=== PATIENT | male | born 1995 | race Caucasian/White ===

== ENCOUNTER → 2018-01-18 08:15 | Outpatient (CLI) | payer SELFPAY ==
[2018-01-18 08:33] LABS: Absolute Lymphocyte Count 1.23 X10^3/ul (0.83-4.51); Absolute Neutrophil Count 2.9 X10^3/uL (2.0-7.7); Basophil# 0.03 X10^3/uL; Basophil% 0.6 % (0-1); Eosinophil# 0.17 X10^3/uL; Eosinophils% 3.5 % (0-5); Hematocrit 46.2 % (40-54); Hemoglobin 16.3 g/dl (13.0-16.5); Lymphocyte # 1.23 X10^3/ul (4.0); Lymphocyte % 25.7 % (19-41); Mean Corp Hgb Conc 35.3 g/gl (32-36); Mean Corpuscular Volume 84.9 fL (80-94); Mean Platelet Vol. 9.3 fl (6.2-12.0); Monocyte# 0.45 X10^3/uL; Monocyte% 9.4 % (0-10); Neutrophil % 60.6 % (47-70); POSITIVE COUNT NO; POSITIVE DIFFERENTIAL NO; POSITIVE MORPHOLOGY NO; Platelet Count 241 K/mm3 (150-450); RBC Distribution Width CV 12.8 % (11.6-14.6); RBC Distribution Width SD 39.6 fl (35.1-43.9); Red Blood Count 5.44 M/mm3 (4.6-6.2); White Blood Count 4.8 K/mm3 (4.4-11.0)
[2018-01-18 09:10] LABS: Anion Gap 7 (5-15); BUN 19 mg/dL (7-18); BUN/Creat Ratio 19.4 RATIO (10-20); Calcium,Total 9.2 mg/dL (8.5-10.1); Chloride 106 mmol/L (98-107); Creatinine, Serum 0.98 mg/dL (0.70-1.30); EST Glomerular Filtration Rate 104 mL/min (>60); Est Glom Filt Rate - Afr Amer 126 mL/min (>60); Glucose 92 mg/dL (74-106); Potassium 3.9 mmol/L (3.5-5.1); Sodium Level 142 mmol/L (136-145)
--- NOTE | 2018-01-18 13:13 | PCM.TILTTABL ---
- Summary Pre Test Resting HR: 75 Pre Test Resting BP: 130/63 Minimum Test HR: 57 Maximum Test HR: 139 Minimum Test BP: 0/0 Maximum Test BP: 145/77 Reason for Test Termination: Syncope Physician Tilt Table Report - Patient's Physicians Primary Care Physician: Terrell Ann Indications/Diagnosis: Recurrent syncope Procedure Comments: The patient was brought to the noninvasive lab in the postabsorptive state. The patient underwent head up tilt table testing for 20 minutes. The initial blood pressure was 130/63 mmHg with a pulse rate of 75 bpm. After 20 minutes the pulse rate was noted to be 78 bpm and a blood pressure 132/75 mmHg. No significant symptomatology was noted other than mild lightheadedness, shortness of breath and tunnel vision. The patient was then brought back in the recumbent position and administered sublingual nitroglycerin. The patient was then put up in the 70 degree had up tilt position. After approximately 4 minutes the heart rate went from 108-122 and then subsequently to 57 bpm with a drop in the blood pressure to palpable only. Patient was noted to be diaphoretic and passed out. Summary: Positive head upright tilt table test with evidence of vasodepressor syncope. Patient recovered well post test.
[2018-01-18 13:17] VITALS: BP 0/0; BP 130/63; BP 145/77
== END ==
PROVIDERS: Family Provider Nurse Practitioner Family; PCP Nurse Practitioner Family; Referring Provider Internal Medicine Cardiovascular Disease; Visit Provider Internal Medicine Cardiovascular Disease
DX: R55 Syncope and collapse (principal); B08.3 Erythema infectiosum [fifth disease]; R42 Dizziness and giddiness
CPT/HCPCS: 36415; 80048; 85025; 93660; J7040; A4216

== ENCOUNTER 2018-09-19 13:09 | Emergency (ER) | payer SELFPAY ==
[2018-09-19 13:10] VITALS: BP 138/74; PULSE 75; RESP 16; TEMP 36.4; O2SAT 97; BMI 27.3
--- NOTE | 2018-09-19 13:30 | CT_ITS ---
STUDY: CT ABDOMEN AND PELVIS WITHOUT CONTRAST REASON FOR EXAM: Male, 22 years old. Right flank pain and right lower quadrant pain. RADIATION DOSAGE (If Supplied By Facility): CTDIvol = ( 8.99 ) mGy, DLP = ( 409.30 ) mGycm TECHNIQUE: Transaxial images were obtained from the dome of the diaphragm to the symphysis pubis without oral contrast, and without intravenous contrast. Sagittal and coronal images were reconstructed. Individualized dose optimization techniques were used for this CT. COMPARISON: None. FINDINGS: The visualized lung bases are unremarkable. The visualized portions of the heart are within normal limits. Normal liver. Normal gallbladder and extrahepatic biliary system. Normal spleen. Normal pancreas. Normal bilateral adrenal glands. Normal right kidney. Normal left kidney. Normal visualized stomach. Normal small intestine. Normal colon. There is a calcified appendicolith. No radiographic evidence of acute appendicitis. Normal abdominal aorta. Normal inferior vena cava. Normal retroperitoneum. Normal urinary bladder. Normal abdominal wall. Schmorl's nodes seen at the T11, T12, L1, L2 and L3 vertebrae. CT/Abdomen/Pelvis without Cont IMPRESSION: Calcified appendicolith without evidence of appendicitis at this time. Electronically Signed: Frank Montenegro, at 14:33 EDT , Service support ,
--- NOTE | 2018-09-19 13:31 | ED.VIS.GEN ---
History of Present Illness Chief Complaint: Flank Pain Informant: Patient Onset: Today Context: Sudden Onset Timing: Waxes and wanes Current Severity: Moderate Maximum Severity: Moderate Narrative: Patient presents with nontraumatic right flank pain radiating to right abdominal region and intermittent radiation to his right testicle. No nausea or vomiting. He does have a physical job but he was not doing anything out of the ordinary when this started. He denies upper abdominal pain. He has no dysuria. Past Medical History - Allergies and Home Meds Allergies/Adverse Reactions: Allergies No Known Allergies Allergy (Verified 03/17/17 15:16) Primary Care Physician: Terrell Ann NP-C [Primary Care Provider] - Prior records reviewed: Yes Past Medical History: None Surgical History: noncontributory Lives: Spouse/ Significant Other Smoking Status: Never smoker - Family History Maternal Family History: Family History (Last Reviewed 12/24/17 @ 16:29 by Harmeet Horne MD) Father Hyperlipidemia Family History: Reports: No pertinent history Review of Systems All systems negative except as indicated General: Denies: Fever Cardiovascular: Denies: Chest pain, Palpitations Respiratory: Denies: Cough Gastrointestinal: Reports: Abdominal pain. Denies: Nausea, Vomiting Genitourinary: Denies: Dysuria, Hematuria Musculoskeletal: Reports: Back pain Skin: Denies: Rash Neurological: Denies: Weakness Psych: Denies: Depression Endocrine: Denies: Polyuria Physical Exam Vital Signs/Narrative: Vital Signs Temp Pulse Resp BP Pulse Ox 09/19/18 13:10 97.5 F L 75 16 138/74 H 97 Inital Vital Signs reviewed: Yes General: Well nourished, Well developed, - - He appears in minimal acute distress Head: Normocephalic Eyes: Perrl, EOMI ENT: Moist mucous membranes Cardiovascular: Regular rate, Regular rhythm Respiratory: No distress, CTA bilaterally Abdomen: Soft, - - Some tenderness on the side of the right abdominal region. No inguinal no testicular pain Back: Normal Inspection, CVA tenderness. Negative for: Spinal tenderness Extremities: No edema Skin: No rash Neurological: Alert, Oriented x3 Diagnostic/Tx/Re-eval - Medical Decision Making Patient has an unremarkable ED work-up, this is likely musculoskeletal. CT flank does not show any kidney stones urinalysis is normal. I will discharge with muscle relaxants ED Disposition - Plan for ED Patient: Disposition: Home or Assisted Living Instructions: Back Safety: Lifting Prescriptions: Tizanidine HCl 4 mg PO TID PRN #12 tab PRN Reason: Muscle Spasm Prescription Printed Referrals: Terrell Ann, [employer] [Primary Care Provider] - 3-5 Days if not improving
[2018-09-19 13:38] LABS: Mucous, Urine 0 SEEN /hpf (<or=2+); White Blood Cells 0 SEEN /hpf (0-5)
[2018-09-19 13:40] LABS: Color, Urine Yellow (Yellow); Glucose, Dipstick Normal (Normal); Ketone-Dipstick Negative (Negative); Leukocyte Esterase-Dipstick Negative /ul (Negative); Nitrite-Dipstick Negative (Negative); Occult Blood-Urine Negative /ul (Negative); Protein-Dipstick 15 mg/dl (Negative); Urine Bilirubin Dipstick Negative (Negative); Urine Clarity Sl. Cloudy (Clear); Urine Urobilinogen Normal (Normal)
[2018-09-19] MEDS: 0.9% Normal Saline 1,000 ML 1000 ML IV (13:47)
[2018-09-19] MEDS: Ketorolac 30 MG/ML Syringe 15 MG IV (13:47)
[2018-09-19 13:49] LABS: Bacteria RARE /hpf (None Seen); Red Blood Cells-Urine 0-5 SEEN /hpf (0-5); Squamous Epithelial Cells - UA 0-5 SEEN /hpf (0-5)
[2018-09-19 15:22] VITALS: RESP 18
== END 2018-09-19 15:30 | disposition home or self-care (01) ==
PROVIDERS: Emergency Provider Emergency Medicine; Family Provider Nurse Practitioner Family; PCP Nurse Practitioner Family
DX: R10.9 Unspecified abdominal pain (principal)
CPT/HCPCS: 74176; 81001; 96361; 96374; 99283; J7030; A4216